=== PATIENT | male | born 1955 | race Caucasian/White ===

== ENCOUNTER 2017-02-18 07:58 | Day surgery (SDC) | payer MEDICARE, MEDICAID ==
[~2017-02-18 07:58] MED LIST: Apraclonidine 0.5% Ophth Soln 5 ML Bot EYELF SCH; Cefuroxime 10 MG/ML SYRINGE EYELF SCH; Lidocaine 1% PF 2 ML SDV INJECT SCH; Pilocarpine 4% Ophth Soln 15 ML Bot EYELF SCH; Proparacaine 0.5% Ophth Soln 15 ML Bottle EYEBOTH SCH; Tetracaine 0.5% 2 ML Bottle EYELF SCH
[2017-02-18] MEDS: Polymyxin B/Trimethoprim 10 ML Bottle EYELF SCH ×3 (08:25→09:54)
[2017-02-18] MEDS: Brimonidine 0.2% Ophth Soln 5 ML Bottle EYELF SCH ×2 (08:30→09:10)
--- NOTE | 2017-02-18 08:32 | PCM.PREANE ---
Preanesthetic Assessment - Anesthesia/Transfusion/Family Hx Anesthesia History: Prior Anesthesia Without Reaction Type of Anesthesia Reaction: Unknown Family History of Anesthesia Reaction: No Transfusion History: Unknown Type of Transfusion Reactions: Reports: Unknown - Review of Systems General: No Symptoms Pulmonary: No Symptoms (smoker) Cardiovascular: No Symptoms (HTN) Gastrointestinal: No symptoms Other: Reports: Anxiety (schizophrenia) - Physical Assessment NPO Status Date: 02/18/17 NPO Status Time: 00:00 Pulse: 77 O2 Sat by Pulse Oximetry: 98 Respiratory Rate: 16 Blood Pressure: 156/90 Temperature: 36.5 C Height: 1.78 m Weight: 66.224 kg ASA Class: 3 Mental Status: Alert & Oriented x3 Airway Class: Mallampati = 2 Dentition: Reports: Edentulous Thyro-Mental Finger Breadths: 3 Mouth Opening Finger Breadths: 3 ROM/Head Extension: Full Lungs: Clear to auscultation, Normal respiratory effort Cardiovascular: Regular Rate, Regular Rhythm - Allergies Allergies/Adverse Reactions: Allergies Allergy/AdvReac Type Severity Reaction Status Date / Time No Known Allergies Allergy Verified 01/20/17 15:18 - Blood Blood Available: No Product(s) Available: None - Anesthesia Plan Pre-Op Medication Ordered: None - Acknowledgements Anesthesia Type Planned: MAC Pt an Appropriate Candidate for the Planned Anesthesia: Yes Alternatives and Risks of Anesthesia Discussed w Pt/Guardian: Yes Pt/Guardian Understands and Agrees with Anesthesia Plan: Yes PreAnesthesia Questionnaire - HOME MEDS Home Medications: Home Meds Benztropine [Cogentin] 1 mg PO ASDIRECTED 01/20/17 [History] Haloperidol Lactate [Haldol 2 MG/ML Soln] 1 injection IM ASDIRECTED 01/20/17 [ History] Levothyroxine [Synthroid] 1 tab PO DAILY 01/20/17 [History] cloZAPine [cloZAPine] 1 tab PO ASDIRECTED 01/20/17 [History] - CURRENT (IN HOUSE) MEDS Current Meds: Current Medications Brimonidine Tartrate (Alphagan 0.2% Ophth Soln) 0 ml EYELF ASDIRECTED RY Stop: 02/18/17 18:00 Cefuroxime Sodium (Zinacef) 0 mg EYELF ASDIRECTED RY Stop: 02/18/17 18:00 Lidocaine HCl (Xylocaine-Mpf 1%) 2 ml INJECT ASDIRECTED RY Stop: 02/18/17 18:00 Phenylephrine HCl (Inder-Synephrine 2.5% Ophth Soln) 0 ml EYELF ASDIRECTED RY Stop: 02/18/17 18:00 Pilocarpine HCl (Pilocar 4% Ophth Soln) 0 ml EYELF ASDIRECTED RY Stop: 02/18/17 18:00 Polymyxin/Trimethoprim Sulfate (Polytrim Ophth Soln) 0 ml EYELF ASDIRECTED RY Stop: 02/18/17 18:00 Proparacaine HCl (Proparacaine 0.5% Ophth Soln) 0 ml EYEBOTH ASDIRECTED RY Stop: 02/18/17 18:00 Tetracaine (Pontocaine 0.5% Ophth Drops) 0 ml EYELF ASDIRECTED RY Stop: 02/18/17 18:00 Tropicamide (Mydriacyl 1% Ophth Soln) 0 ml EYELF ASDIRECTED RY Stop: 02/18/17 18:00 Discontinued Medications Apraclonidine HCl (Iopidine 0.5% Ophth Soln) 0 ml EYELF ASDIRECTED RY Stop: 02/18/17 18:00 Preanesthetic Assessment - ANESTHESIA/TRANSFUSION/FAMILY HX Anesthesia/Transfusion History: No Prior Anesthesia, No Prior Transfusion(s) Type of Anesthesia Reaction: Reports: Unknown Family History of Anesthesia Reaction: No Type of Transfusion Reactions: Reports: Unknown - PHYSICAL ASSESSMENT Height: 1.78 m Weight: 66.224 kg - ALLERGIES Allergies/Adverse Reactions: Allergies Allergy/AdvReac Type Severity Reaction Status Date / Time No Known Allergies Allergy Verified 01/20/17 15:18
[2017-02-18] MEDS: Phenylephrine 2.5% Ophth Soln 2 ML Bot EYELF SCH ×5 (08:35→09:38)
[2017-02-18] MEDS ORDERED: Midazolam 1 MG/ML 2 ML SDV ONE (08:55)
[2017-02-18] MEDS ORDERED: Propofol 200 MG/20 ML SDV ONE (09:27)
--- NOTE | 2017-02-18 09:56 | PCM48HPAN ---
Post Anesthesia Note - EVALUATION WITHIN 48HRS OF ANESTHETIC Vital Signs in Normal Range: Yes Patient Participated in Evaluation: Yes Respiratory Function Stable: Yes Airway Patent: Yes Cardiovascular Function Stable: Yes Hydration Status Stable: Yes Pain Control Satisfactory: Yes Nausea and Vomiting Control Satisfactory: Yes Mental Status Recovered: Yes
[2017-02-18 10:07] VITALS: BP 136/91
== END 2017-02-18 10:20 | disposition other institution (70) ==
LOC: JD.SDS 07:58
PROVIDERS: ATTEND Ophthalmology
DX: H26.9 Unspecified cataract (principal); I10 Essential (primary) hypertension; Z98.890 Other specified postprocedural states; Z79.899 Other long term (current) drug therapy; F17.210 Nicotine dependence, cigarettes, uncomplicated
CPT/HCPCS: 66984; A9270; J0697; J2250; J2704; V2632

== ENCOUNTER 2017-03-29 16:21 | Emergency (ER) | payer MEDICARE, MEDICAID ==
[2017-03-29] MEDS ORDERED: Sodium Chloride 0.9% 1,000 ML IV STA (16:59)
[2017-03-29] MEDS ORDERED: Sodium Chloride 0.9% 10 ML Syringe FLUSH PRN (16:59)
[2017-03-29] MEDS ORDERED: cefTRIAXone 2 GM in Sodium Chloride 0.9% 100 ML IV ONE (18:21)
--- NOTE | 2017-03-29 18:25 | EDM.PDOC ---
ED HPI SEPSIS - General Chief Complaint: Fever Stated Complaint: FEVER/INFLUENZA B DX Time Seen by Provider: 03/29/17 16:41 Source of Information: Reports: Patient, Family History Limitations: Reports: No limitations - History of Present Illness INITIAL COMMENTS - FREE TEXT/NARRATIVE: The patient presents with a persistent fever. He has schizophrenia and he lives at the [facility]. He was diagnosed with influenza B last week. He was on tamiflu. He continues to have a fever. Today it was 103.1. He has a cough but that has improved from before. He has no chest pain, ear pain, sore throat , shortness of breath, abdominal pain, nausea or vomiting. Timing/Duration: Reports: Week(s): (over 1 week) Severity: moderate Improves with: Reports: None Worsens with: Reports: None Context: Reports: infection (Influenza B infection last week) Associated Symptoms: Reports: cough, fever/chills. Denies: nausea/vomiting - Related Data Allergies/ADRs: Allergies Allergy/AdvReac Type Severity Reaction Status Date / Time No Known Allergies Allergy Verified 02/18/17 08:51 Home Meds: Home Meds Benztropine [Cogentin] 2 mg PO BID 01/20/17 [History] Levothyroxine [Synthroid] 100 mcg PO DAILY 01/20/17 [History] cloZAPine [cloZAPine] 25 mg PO BEDTIME 01/20/17 [History] Haloperidol [Haldol] 10 mg PO BEDTIME 03/29/17 [History] Past Medical History Psychiatric History: Reports: Anxiety, Schizophrenia - Past Surgical History HEENT Surgical History: Reports: Cataract surgery Social & Family History - Tobacco Use Smoking Status *Q: Never Smoker Years of Tobacco use: 30 Packs/Tins Daily: 1 - Caffeine Use Caffeine Use: Reports: Soda - Recreational Drug Use Recreational Drug Use: No ED ROS GENERAL - Review of Systems Review Of Systems: See Below Constitutional: Reports: fever, chills HEENT: Reports: No symptoms Respiratory: Reports: Cough. Denies: Shortness of Breath Cardiovascular: Reports: No symptoms Endocrine: Reports: no symptoms GI/Abdominal: Reports: No symptoms : Reports: no symptoms Musculoskeletal: Reports: no symptoms ED EXAM, SEPSIS - Physical Exam Exam: See Below Exam Limited By: No limitations General Appearance: alert, no apparent distress Ears: normal external exam Nose: normal inspection Throat/Mouth: Normal inspection Head: atraumatic, normocephalic Neck: normal inspection Respiratory/Chest: no respiratory distress, lungs clear, normal breath sounds Cardiovascular: regular rate, rhythm, no edema, no murmur GI/Abdominal: soft, non tender, no organomegaly Back: normal inspection Extremities: normal inspection Neurological: alert, oriented, no motor/sensory deficits Course - Vital Signs Last Recorded V/S: Last Vital Signs Temp 101.1 F H 03/29/17 16:35 Pulse 95 03/29/17 16:35 Resp 36 H 03/29/17 16:35 BP 111/67 03/29/17 16:35 Pulse Ox 95 03/29/17 16:35 - Orders/Labs/Meds Orders: Active Orders 24 hr Category Date Time Status Peripheral IV Care [RC] . DIRECTED Care 03/29/17 16:59 Active Chest 2V [CR] Stat Exams 03/29/17 16:59 Taken CULTURE BLOOD [BC] Stat Lab 03/29/17 17:20 Received CULTURE BLOOD [BC] Stat Lab 03/29/17 17:29 Received UA W/MICROSCOPIC [URIN] Stat Lab 03/29/17 16:59 Uncollected Sodium Chloride 0.9% [Saline Flush] Med 03/29/17 16:59 Active 10 ml FLUSH ASDIRECTED PRN Blood Culture x2 Reflex Set [OM.PC] Stat Oth 03/29/17 17:00 Ordered Peripheral IV Insertion Adult [OM.PC] Stat Oth 03/29/17 16:59 Ordered Medication Orders Sodium Chloride (Saline Flush) 10 ml FLUSH ASDIRECTED PRN PRN Reason: Keep Vein Open Last Admin: 03/29/17 17:20 Dose: 10 ml Labs: Laboratory Tests 03/29/17 03/29/17 03/29/17 Range/Units 17:20 17:20 17:20 WBC 8.32 (4.23-9.07) K/mm3 RBC 4.17 L (4.63-6.08) M/mm3 Hgb 12.5 L (13.7-17.5) gm/L Hct 35.9 L (40.1-51.0) % MCV 86.1 (79.0-92.2) fl MCH 30.0 (25.7-32.2) pg MCHC 34.8 (32.2-35.5) g/dl RDW Std Deviation 40.3 (35.1-43.9) fL Plt Count 261 (163-337) K/mm3 MPV 9.9 (9.4-12.3) fl Neut % (Auto) 74.0 H (34.0-67.9) % Lymph % (Auto) 8.5 L (21.8-53.1) % [place] % (Auto) 16.8 H (5.3-12.2) % Eos % (Auto) 0.2 L (0.8-7.0) Baso % (Auto) 0.1 (0.1-1.2) % Neut # (Auto) 6.15 H (1.78-5.38) K/mm3 Lymph # (Auto) 0.71 L (1.32-3.57) K/mm3 [place] # (Auto) 1.40 H (0.30-0.82) K/mm3 Eos # (Auto) 0.02 L (0.04-0.54) K/mm3 Baso # (Auto) 0.01 (0.01-0.08) K/mm3 Manual Slide Review Abnormal smear Sodium 138 (136-145) mEq/L Potassium 3.0 L (3.5-5.1) mEq/L Chloride 103 (98-107) mEq/L Carbon Dioxide 24 (21-32) mEq/L Anion Gap 14.0 (5-15) BUN 15 (7-18) mg/dL Creatinine 1.0 (0.7-1.3) mg/dL Est Cr Clr Drug Dosing 71.95 mL/min Estimated GFR (MDRD) > 60 (>60) mL/min BUN/Creatinine Ratio 15.0 (14-18) Glucose 139 H (74-106) mg/dL Calcium 8.4 L (8.5-10.1) mg/dL Total Bilirubin 0.8 (0.2-1.0) mg/dL AST 72 H (15-37) U/L ALT 81 H (16-63) U/L Alkaline Phosphatase 97 (46-116) U/L Total Protein 6.6 (6.4-8.2) g/dl Albumin 2.8 L (3.4-5.0) g/dl Globulin 3.8 gm/dL Albumin/Globulin Ratio 0.7 L (1-2) Monoscreen Negative (NEGATIVE) Meds: Medications Generic Name Dose Route Start Last Admin Trade Name Freq PRN Reason Stop Dose Admin Sodium Chloride 10 ml 03/29/17 16:59 03/29/17 17:20 Saline Flush FLUSH 10 ml ASDIRECTED PRN Administration Keep Vein Open Discontinued Medications Generic Name Dose Route Start Last Admin Trade Name Freq PRN Reason Stop Dose Admin Sodium Chloride 1,000 mls @ 1,000 mls/hr 03/29/17 16:59 03/29/17 17:19 Normal Saline IV 03/29/17 17:58 1,000 mls/hr .BOLUS STA Administration - Re-Assessments/Exams Free Text/Narrative Re-Assessment/Exam: 03/29/17 18:23 I ordered an IV NS 1L bolus, labs, blood cultures, and CXR. His CBC looks good. His K was a little low at 3. I will get him started on some K for that. His His AST was slightly elevated at 72 and ALT is elevated at 81. His monoscreen is negative. His CXR shows an infiltrate in the left lower lobe. I will give him a dose of rocephin 2 grams. I will get him on some zithromax and some potassium. Departure - Departure Time of Disposition: 18:25 Disposition: Home, Self-Care 01 Condition: good Clinical Impression: Pneumonia Qualifiers: Pneumonia type: due to unspecified organism Laterality: left Lung location: lower lobe of lung Qualified Code(s): J18.1 - Lobar pneumonia, unspecified organism Referrals: Shabana Shah NP [Primary Care Provider] - 1 Week Forms: ED Department Discharge Additional Instructions: Take zithromax 2 pills on day 1 and 1 pill on day 2 through 5. Take the potassium 20meq daily for 2 weeks and have that rechecked next week. Please return if you are worse such as more short of breath, nausea vomiting or weakness. - My Orders Last 24 Hours: My Active Orders 03/29/17 16:59 Peripheral IV Care [RC] . DIRECTED Chest 2V [CR] Stat UA W/MICROSCOPIC [URIN] Stat Sodium Chloride 0.9% [Saline Flush] 10 ml FLUSH ASDIRECTED PRN Peripheral IV Insertion Adult [OM.PC] Stat 03/29/17 17:00 Blood Culture x2 Reflex Set [OM.PC] Stat 03/29/17 17:20 CULTURE BLOOD [BC] Stat 03/29/17 17:29 CULTURE BLOOD [BC] Stat - Assessment/Plan Last 24 Hours: My Active Orders 03/29/17 16:59 Peripheral IV Care [RC] . DIRECTED Chest 2V [CR] Stat UA W/MICROSCOPIC [URIN] Stat Sodium Chloride 0.9% [Saline Flush] 10 ml FLUSH ASDIRECTED PRN Peripheral IV Insertion Adult [OM.PC] Stat 03/29/17 17:00 Blood Culture x2 Reflex Set [OM.PC] Stat 03/29/17 17:20 CULTURE BLOOD [BC] Stat 03/29/17 17:29 CULTURE BLOOD [BC] Stat
[2017-03-29 19:01] VITALS: BP 104/63
--- NOTE | 2017-03-30 13:54 | CR ---
Chest: Two views of the chest were obtained. Comparison: No previous study. Increased density seen within the lingula. Lungs otherwise are clear of acute infiltrates. Heart size and mediastinum are normal. Scoliosis is noted within the spine. Impression: 1. Increased density within the lingula. This most likely represents pneumonia. 2. Incidental scoliosis. Diagnostic code #3
== END 2017-03-29 19:08 | disposition home or self-care (01) ==
LOC: JD.ED 16:21
DX: J18.1 Lobar pneumonia, unspecified organism (principal); F41.9 Anxiety disorder, unspecified; Z98.49 Cataract extraction status, unspecified eye; Z79.899 Other long term (current) drug therapy
CPT/HCPCS: 36415; 71020; 80053; 81001; 85025; 86308; 87040; 96361; 96365; 99284; J0696; J7030; J7040; J7050